=== PATIENT | male | born 2000 | race Caucasian/White ===

== ENCOUNTER 2019-03-01 22:03 | Observation (INO) | payer BC ==
[2019-03-02 02:38] LABS: ABS Eosinophils 0.2 10^3/ul (0-0.6); ABS Lymphocytes 2.7 10^3/ul (1.0-4.8); ABS Monocytes 0.6 10^3/ul (0-0.8); ABS Neutrophils 6.8 10^3/ul (1.5-7.7); Eosinophil % 1.5 %; Hematocrit 41 % (42-52); Hemoglobin 13.8 g/dL (14.0-18.0); Lymphocyte % 26.2 %; Mean Corpuscular HGB Conc 34 g/dL (31-36); Mean Corpuscular Hemoglobin 31 pg (27-31); Mean Corpuscular Volume 91 fL (80-94); Mean Platelet Volume 9.4 fL (7.4-10.4); Nucleated Red Blood Cells % 0.1; Platelet Count 217 10^3/uL (150-450); Red Blood Count 4.49 10^6 /uL (4.18-5.48); Red Cell Distribution Width 13 % (10-15); White Blood Count 10.4 10^3/uL (3.5-10.8)
[2019-03-02 02:53] LABS: Albumin 4.4 g/dL (3.2-5.2); Albumin/Globulin Ratio 1.8 (1-3); BUN/Creatinine Ratio 19.8 (8-20); Calcium 9.3 mg/dL (8.6-10.3); EGFR Non-African American 121.5 (>60); Globulin 2.4 g/dL (2-4); Potassium 3.9 mmol/L (3.5-5.0); Total Bilirubin 1.1 mg/dL (0.2-1.0); Total Protein 6.8 g/dL (6.4-8.9)
[2019-03-02] MEDS ORDERED: Iohexol 300* (CONTRAST) 10 ML SDV IV ONE (03:25)
[2019-03-02 13:00] VITALS: BP 98/60
[2019-03-02] MEDS ORDERED: Ibuprofen TAB* 400 MG PO ONE (13:02)
--- NOTE | 2019-03-02 14:18 | HP ---
CC: [facility] * HISTORY AND PHYSICAL: DATE OF ADMISSION: 03/02/19 HISTORY OF PRESENT ILLNESS: I was contacted by the emergency room in the overnight regarding Mr. Reed, a 18-year-old gentleman, who suffered spontaneous pneumothoraces in the past on the left side. He now presented with right-sided chest pain, acute onset, consistent with previous issues and underwent workup in the ER which included an x-ray. X-ray showed moderate- sized right pneumothorax and I was called. When I discussed the case with the ER doctor, I recommended transfer to a center with thoracic surgery given the patient's history of previous pneumothoraces without surgical intervention. This discussion was held with thoracic group in [place] and they recommended no VATS on the right side given that this is a new event. The patient's other workup had been done in [place] where he is from. When I was recontacted by the emergency room, I decided to admit the patient to my service and do a followup x-ray in the morning to see if there is any resolution. The patient, according to the ER physician, was hemodynamically stable and not requiring oxygen. There was no midline shift or evidence of tension pneumothorax on the exam. The patient underwent a CT scan of the chest. I am not clear as to who ordered it. It appears that I did although I do not. I believe this is done within the emergency room. However, these images were reviewed. No significant past medical history other than above. The patient did undergo chest tube placement on the left in the past for the first episode of pneumothorax and on the second, there was no additional intervention. MEDICATIONS: None. ALLERGIES: None. 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 He rarely smokes marijuana. He does not smoke cigarettes. He has no other illnesses. He has fair exercise tolerance. FAMILY HISTORY: Noncontributory. PHYSICAL EXAMINATION GENERAL: The patient is afebrile. Alert and oriented x3, in no apparent distress. VITAL SIGNS: Stable, 100% saturation on room air. HEENT: Head is normocephalic, atraumatic. Sclerae anicteric. Mucous membranes are moist. NECK: No lymphadenopathy. Trachea midline. No crepitance. LUNGS: Lung mathis clear with maybe decreased breath sounds on the right. ABDOMEN: Soft, nondistended, nontender. EXTREMITIES: Within normal limits. DIAGNOSTIC STUDIES/LAB DATA: The patient's CT scan reviewed and shows a 30% pneumothorax. X-rays from this morning shows no change when compared to the X- rays from the last night, with persistent right-sided pneumothorax. IMPRESSION: Spontaneous pneumothorax in a patient with history of this. This is the first episode on the right. PLAN/RECOMMENDATIONS: I recommend right tube thoracostomy. Outlined the details of the procedure, going over the risks, benefits and alternatives. The patient wishes to proceed. No antibiotics are necessary. No IV fluids. Plan is for tube thoracostomy and discharge home with close followup in the office. [id number]/[facility] #: [id number] LEYLA
--- NOTE | 2019-03-02 15:07 | DS ---
CC: [facility] DISCHARGE SUMMARY: DATE OF ADMISSION: DATE OF DISCHARGE: 03/02/19 HISTORY: Mr. Reed was admitted overnight with spontaneous right pneumothorax. He was hemodynamic ally stable and was admitted to the esparza for planned x-ray in the morning. This x-ray was performed and reviewed and I recommended tube thoracostomy. This was performed and the patient did well with e vacuation of the air from the right hemithorax. The patient was discharged home with a Heimlich valv e connected to the appropriate tubing for planned followup in the office on Wednesday. The patient was discharged home in stable condition. [id number]/[facility] #: [id number]
--- NOTE | 2019-03-02 22:14 | PRO ---
DATE OF PROCEDURE: 03/02/19 - ROOM #420 DATE OF : 89 SURGEON: Hector Gabriel MD OPTICIANRY TEACHER: None. ANESTHESIA: Local anesthesia. PREPROCEDURE DIAGNOSIS: Spontaneous right pneumothorax. POSTPROCEDURE DIAGNOSIS: Spontaneous right pneumothorax. PROCEDURE PERFORMED: Right tube thoracostomy. ESTIMATED BLOOD LOSS: No blood loss. FLUIDS: No fluids given. ANTIBIOTICS: No antibiotics. IMPLANT: An 8-Filipino Heimlich type tubing placed in the right chest. DESCRIPTION OF PROCEDURE: After obtaining informed consent, discussing the risks, benefits and alternatives, the patient was positioned appropriately. The right upper chest was prepped sterilely. I injected lidocaine along the proposed incision site over the third rib and entered in the second intercostal space placing an 8-Filipino Heimlich type tubing pneumothorax kit. A small gush of air was noted and additional air was removed with a syringe. This was sutured in place and connected to Heimlich valve followed by a sterile dressing. The patient tolerated the procedure well. [id number]/[facility] #: [id number] [facility] CENTERMatt
--- NOTE | 2019-03-07 02:35 | ED ---
HPI Chest Pain - HPI Summary HPI Summary: Patient with history of pneumothorax 2 in high school presents with right- sided chest pain and shortness of breath. Patient states symptoms feel similar to prior pneumothorax. Prior pneumothorax on left side. Patient states very mild chest pain and shortness of breath at this time. Denies any other symptoms , pain or injury or trauma. Patient states he ran uphill to class, and symptoms started an hour later. Medical history is none. - History of Current Complaint Chief Complaint: EDShortnessOfBreath Time Seen by Provider: 03/01/19 22:35 Hx Obtained From: Patient Onset/Duration: Started Hours Ago Timing: Constant Initial Severity: Moderate Current Severity: Mild Pain Intensity: 2 Pain Scale Used: 0-10 Numeric Chest Pain Location: Right Anterior Chest Pain Radiates: No Character: Tightness Aggravating Factor(s): Nothing Alleviating Factor(s): Nothing Associated Signs and Symptoms: Positive: Chest Pain, Shortness of Breath - Allergy/Home Medications Allergies/Adverse Reactions: Allergies Allergy/AdvReac Type Severity Reaction Status Date / Time No Known Allergies Allergy Verified 03/01/19 22:08 Home Medications: Home Medications NK [No Home Medications Reported] 03/01/19 [History Confirmed 03/01/19] PMH/Surg Hx/FS Hx/Imm Hx Endocrine/Hematology History: Denies: Hx Anticoagulant Therapy Cardiovascular History: Reports: Other Cardiovascular Problems/Disorders - PNEUMO Respiratory History: Reports: Other Respiratory Problems/Disorders - Spontaneous pneumothorax History: Denies: Hx Dialysis Sensory History: Reports: Hx Contacts or Glasses Denies: Hx Hearing Aid Opthamlomology History: Reports: Hx Contacts or Glasses EENT History: Denies: Hx Deafness Neurological History: Denies: Hx Dementia Infectious Disease History: No Infectious Disease History: Denies: Traveled Outside the [place] in Last 30 Days - Family History Known Family History: Positive: Non-Contributory - Social History Alcohol Use: Weekly Substance Use Type: Reports: None Smoking Status (MU): Never Smoked Tobacco Review of Systems Constitutional: Negative Eyes: Negative ENT: Negative Positive: Chest Pain Positive: Shortness Of Breath Gastrointestinal: Negative Genitourinary: Negative Musculoskeletal: Negative Skin: Negative Neurological: Negative Psychological: Normal All Other Systems Reviewed And Are Negative: Yes Physical Exam Triage Information Reviewed: Yes Vital Signs On Initial Exam: Initial Vitals Temp Pulse Resp BP Pulse Ox 98.1 F 69 20 128/81 100 03/01/19 22:04 03/01/19 22:04 03/01/19 22:04 03/01/19 22:04 03/01/19 22:04 Vital Signs Reviewed: Yes Appearance: Positive: Well-Appearing Skin: Positive: Warm Head/Face: Positive: Normal Head/Face Inspection Eyes: Positive: Normal Neck: Positive: Supple Respiratory/Lung Sounds: Positive: Clear to Auscultation Cardiovascular: Positive: Normal Abdomen Description: Positive: Nontender Musculoskeletal: Positive: Normal Neurological: Positive: Normal Psychiatric: Positive: Normal AVPU Assessment: Alert - [place] Coma Scale Best Eye Response: 4 - Spontaneous Best Motor Response: 6 - Obeys Commands Best Verbal Response: 5 - Oriented Coma Scale Total: 15 Procedures - Sedation Patient Received Moderate/Deep Sedation with Procedure: No Diagnostics - Vital Signs Vital Signs Temp Pulse Resp BP Pulse Ox 03/02/19 00:15 71 16 97 03/02/19 00:07 65 19 107/69 97 03/02/19 00:00 68 15 97 03/01/19 23:37 70 19 107/71 98 03/01/19 23:07 64 12 122/70 99 03/01/19 23:00 74 23 97 03/01/19 22:37 64 18 109/74 98 03/01/19 22:09 74 14 100 03/01/19 22:07 73 13 128/81 100 03/01/19 22:04 98.1 F 69 20 128/81 100 - Laboratory Result Diagrams: 03/02/19 02:31 03/02/19 02:31 Lab Statement: Any lab studies that have been ordered have been reviewed, and results considered in the medical decision making process. Chest Pain Course/Dx - Course Course Of Treatment: Patient with history of pneumothorax 2 in high school presents with right-sided chest pain and shortness of breath. Patient states symptoms feel similar to prior pneumothorax. Prior pneumothorax on left side. Patient states very mild chest pain and shortness of breath at this time. Denies any other symptoms, pain or injury or trauma. Patient states he ran uphill to class, and symptoms started an hour later. Medical history is none. Vital signs within normal limits. Chest x-ray positive for right side pneumothorax. Labs unremarkable. Patient stable on room air. Discussed patient with on-call surgery Dr. Prieto who recommended transfer for possible VATS treatment. Discussed patient with cardiothoracic attending at [facility] who stated that as this was first time pneumothorax on right side, they would not typically perform this treatment for first time pneumothorax as there is only 20% chance of recurrence. Transfer was not recommended. Discussed patient with Dr. Gabriel again who agreed to admit for observation and reevaluation in the morning. Patient stable on room air. Admitted to Dr. Prieto. - Diagnoses Provider Diagnoses: Pneumothorax on right Discharge ED - Sign-Out/Discharge Documenting (check all that apply): Patient Departure - Discharge Plan Condition: Stable Disposition: ADMITTED TO [facility] - Billing Disposition and Condition Condition: STABLE Disposition: Admitted to [facility]
== END 2019-03-02 14:35 | disposition home or self-care (01) ==
LOC: ED 22:03 → MED 03-02 00:20
PROVIDERS: ADMIT Surgery; ATTEND Surgery
DX: J93.9 Pneumothorax, unspecified (principal); R07.9 Chest pain, unspecified
CPT/HCPCS: 36415; 71046; 71260; 80053; 85025; 99284; A9270-GY; G0378; Q9967